=== PATIENT | male | born 1975 | race Asian ===

== ENCOUNTER → 2017-01-15 | Outpatient (CLI) | payer BC | LOC: MW.CHNEURO 13:02 | PROVIDERS: ATTEND Psychiatry & Neurology Neuromuscular Medicine | DX: I63.9 Cerebral infarction, unspecified (principal); Z53.9 Procedure and treatment not carried out, unspecified reason ==

== ENCOUNTER → 2017-01-16 | Outpatient (CLI) | payer BC ==
--- NOTE | 2017-01-16 11:14 | CT ---
EXAMINATION: Non contrast CT head. Coronal and sagittal reformats. HISTORY: Cerebral infarction Comparison: MRI and CT dated 11/14/2016 FINDINGS: No evidence of intra or extra axial hemorrhage, mass, midline shift, hydrocephalus or edema. No hypoattenuation changes in the major vascular territories to suggest acute infarct. No abnormal intracranial calcifications are detected. No evidence of substantial vascular calcifica tions. Paranasal sinuses and mastoid air cells are well aerated without substantial findings. Pituitary fossa appears unremarkable. The orbits and globes appear normal. Calvarium is intact. No evidence of skull fracture. IMPRESSION: 1. No acute intracranial findings. 2. Previously demonstrated right frontoparietal infarct is not visualized.
== END ==
LOC: MW.DI 10:37
PROVIDERS: ATTEND Psychiatry & Neurology Neuromuscular Medicine
DX: I63.9 Cerebral infarction, unspecified (principal)
CPT/HCPCS: 70450; 70450-26

== ENCOUNTER 2017-10-11 13:50 | Emergency (ER) | payer BC ==
[2017-10-11] MEDS ORDERED: Sodium Chloride 0.9% 10 ML Syringe FLUSH PRN (14:11)
[2017-10-11] MEDS ORDERED: Sodium Chloride 0.9% 2.5 ML Syringe FLUSH PRN (14:11)
[2017-10-11 14:50] LABS: CHLORIDE,CL 105 mmol/L (98-110); SODIUM,NA 138 mmol/L (136-146)
--- NOTE | 2017-10-11 14:53 | CR ---
EXAMINATION: Portable chest radiograph. HISTORY: Shortness of breath. FINDINGS: The trachea is midline. The cardiomediastinal silhouette is within normal limits. No pulmonary infilt rates, effusions or pneumothorax. Osseous structures appear unremarkable. IMPRESSION: No acute cardiopulmonary process.
[2017-10-11] MEDS ORDERED: Sodium Chloride 0.9% 1,000 ML IV ONE (15:01)
--- NOTE | 2017-10-11 15:57 | CT ---
EXAMINATION: Non contrast CT head. Coronal and sagittal reformats. HISTORY: Pain FINDINGS: No evidence of intra or extra axial hemorrhage, mass, midline shift, hydrocephalus or edema. No hypoattenuation changes in the major vascular territories to suggest acute infarct. No abnormal intracranial calcifications are detected. No evidence of substantial vascular calcificat ions. Paranasal sinuses and mastoid air cells are well aerated without substantial findings. Old left medi al inferior orbital wall fracture. Pituitary fossa appears unremarkable. Calvarium is intact. No evidence of skull fracture. IMPRESSION: No acute intracranial findings.
--- NOTE | 2017-10-11 16:05 | EDM.PDOC ---
ED HPI GENERAL MEDICAL PROBLEM - General Chief Complaint: General Stated Complaint: light head, sweats amd neck tention Time Seen by Provider: 10/11/17 13:59 Source of Information: Reports: Patient History Limitations: Reports: No Limitations - History of Present Illness INITIAL COMMENTS - FREE TEXT/NARRATIVE: History of present illness: []Patient had an episode earlier today where he felt "disconnected" no specific symptoms such as dizziness, headache, numbness tingling, chest pain, shortness of breath or visual changes. States he's had TIAs capacity feels same. Says that his symptoms have decreased. He felt similar symptoms 2 days ago when [place] and states that he talked himself down calling it a "anxiety attack" Review of systems: As per history of present illness and below otherwise all systems reviewed and negative. Past medical history: As per history of present illness and as reviewed below otherwise noncontributory. Surgical history: As per history of present illness and as reviewed below otherwise noncontributory. Social history: No reported history of drug or alcohol abuse. Family history: As per history of present illness and as reviewed below otherwise noncontributory. Physical exam: General: Well developed, well nourished in NAD HEENT: Atraumatic, normocephalic, pupils reactive, negative for conjunctival pallor or scleral icterus, mucous membranes moist, throat clear, neck supple, nontender, trachea midline. Lungs: Clear to auscultation, breath sounds equal bilaterally, chest nontender. Heart: S1S2, regular, negative for clicks, rubs, or JVD. Abdomen: Soft, nondistended, nontender. Negative for masses or hepatosplenomegaly. Negative for costovertebral tenderness. Pelvis: Stable nontender. Genitourinary: Deferred. Rectal: Deferred. Extremities: Atraumatic, negative for cords or calf pain. Neurovascular unremarkable. Neuro: Awake, alert, oriented. Cranial nerves II through XII unremarkable. Cerebellum unremarkable. Motor and sensory unremarkable throughout. Exam nonfocal. Diagnostics: [] Therapeutics: [] Impression: [] Plan: [] Definitive disposition and diagnosis as appropriate pending reevaluation and review of above. - Related Data Allergies Allergy/AdvReac Type Severity Reaction Status Date / Time No Known Allergies Allergy Verified 10/11/17 14:04 Home Meds: Home Meds Aspirin 81 mg PO DAILY 11/14/16 [History] Ergocalciferol (Vitamin D2) [Vitamin D] 0 units PO DAILY 11/14/16 [History] atorvaSTATin [Lipitor] 20 mg PO BEDTIME 10/11/17 [History] Past Medical History - Past Health History Medical/Surgical History: Denies Medical/Surgical History HEENT History: Reports: Impaired Vision Other HEENT History: wears glasses Cardiovascular History: Reports: Other (See Below) Other Cardiovascular History: PFO Neurological History: Reports: Other (See Below) Other Neuro History: hx of 2 stroke: in 2012 and 2016 Social & Family History - Family History Family Medical History: Noncontributory Cardiac: Reports: CAD Oncologic: Reports: Prostate - Tobacco Use Smoking Status *Q: Never Smoker Second Hand Smoke Exposure: No - Caffeine Use Caffeine Use: Reports: Coffee Caffeine Use Comment: 2 cups daily - Recreational Drug Use Recreational Drug Use: No ED ROS GENERAL - Review of Systems Review Of Systems: See Below (See history of present illness) ED EXAM, GENERAL - Physical Exam Exam: See Below (See history of present illness) Course - Vital Signs Last Recorded V/S: Last Vital Signs Temp 97.3 F 10/11/17 13:50 Pulse 58 L 10/11/17 13:50 Resp 20 10/11/17 13:50 BP 146/93 H 10/11/17 13:50 Pulse Ox 99 10/11/17 13:50 - Orders/Labs/Meds Orders: Active Orders 24 hr Category Date Time Status EKG Documentation Completion [RC] STAT Care 10/11/17 14:11 Active Sodium Chloride 0.9% [Saline Flush] Med 10/11/17 14:11 Active 10 ml FLUSH ASDIRECTED PRN Sodium Chloride 0.9% [Saline Flush] Med 10/11/17 14:11 Active 2.5 ml FLUSH ASDIRECTED PRN Saline Lock Insert [OM.PC] Stat Oth 10/11/17 14:11 Ordered Medication Orders Sodium Chloride (Saline Flush) 10 ml FLUSH ASDIRECTED PRN PRN Reason: Keep Vein Open Last Admin: 10/11/17 14:38 Dose: 10 ml Sodium Chloride (Saline Flush) 2.5 ml FLUSH ASDIRECTED PRN PRN Reason: Keep Vein Open Last Admin: 10/11/17 14:38 Dose: 2.5 ml Labs: Laboratory Tests 10/11/17 10/11/17 10/11/17 Range/Units 14:00 14:25 14:25 WBC 9.58 (4.0-11.0) K/uL RBC 5.16 (4.50-5.90) M/uL Hgb 15.9 (13.0-17.0) g/dL Hct 45.3 (38.0-50.0) % MCV 87.8 (80.0-98.0) fL MCH 30.8 (27.0-32.0) pg MCHC 35.1 (31.0-37.0) g/dL RDW Std Deviation 40.6 (28.0-62.0) fl RDW Coeff of Michele 13 (11.0-15.0) % Plt Count 193 (150-400) K/uL MPV 9.50 (7.40-12.00) fL Neut % (Auto) 72.4 (48.0-80.0) % Lymph % (Auto) 19.2 (16.0-40.0) % Hart % (Auto) 6.8 (0.0-15.0) % Eos % (Auto) 1.4 (0.0-7.0) % Baso % (Auto) 0.2 (0.0-1.5) % Neut # (Auto) 6.9 H (1.4-5.7) K/uL Lymph # (Auto) 1.8 (0.6-2.4) K/uL Hart # (Auto) 0.7 (0.0-0.8) K/uL Eos # (Auto) 0.1 (0.0-0.7) K/uL Baso # (Auto) 0.0 (0.0-0.1) K/uL Nucleated RBC % 0.0 /100WBC Nucleated RBCs # 0 K/uL Sodium 138 (136-146) mmol/L Potassium 4.0 (3.5-5.1) mmol/L Chloride 105 (98-110) mmol/L Carbon Dioxide 24 (21-31) mmol/L BUN 14 (6.0-23.0) mg/dL Creatinine 0.9 (0.6-1.5) mg/dL Est Cr Clr Drug Dosing 116.20 mL/min Estimated GFR (MDRD) > 60.0 ml/min Glucose 100 (60-110) mg/dL Calcium 9.5 (8.8-10.8) mg/dL Total Bilirubin 0.5 (0.1-1.5) mg/dL AST 23 (5-40) IU/L ALT 36 (8-54) IU/L Alkaline Phosphatase 107 (40-150) Troponin I < 0.10 (0.0-0.29) NG/ML Total Protein 7.6 (6.0-8.0) g/dL Albumin 4.5 (3.5-5.0) g/dL Globulin 3.1 (2.0-3.5) g/dL Albumin/Globulin Ratio 1.5 (1.3-2.8) Urine Color YELLOW Urine Appearance CLEAR Urine pH 5.5 (5.0-8.0) Ur Specific [place] <= 1.005 (1.001-1.035) Urine Protein NEGATIVE (NEGATIVE) mg/dL Urine Glucose (UA) NEGATIVE (NEGATIVE) mg/dL Urine Ketones NEGATIVE (NEGATIVE) mg/dL Urine Occult Blood TRACE-INTACT (NEGATIVE) Urine Nitrite NEGATIVE (NEGATIVE) Urine Bilirubin NEGATIVE (NEGATIVE) Urine Urobilinogen 0.2 (<2.0) EU/dL Ur Leukocyte Esterase NEGATIVE (NEGATIVE) Urine RBC 0-2 (0-2/HPF) Urine WBC 0-1 (0-5/HPF) Ur Epithelial Cells RARE (NONE-FEW) Urine Bacteria RARE (NEGATIVE) Meds: Medications Generic Name Dose Route Start Last Admin Trade Name Freq PRN Reason Stop Dose Admin Sodium Chloride 10 ml 10/11/17 14:11 10/11/17 14:38 Saline Flush FLUSH 10 ml ASDIRECTED PRN Administration Keep Vein Open Sodium Chloride 2.5 ml 10/11/17 14:11 10/11/17 14:38 Saline Flush FLUSH 2.5 ml ASDIRECTED PRN Administration Keep Vein Open Discontinued Medications Generic Name Dose Route Start Last Admin Trade Name Freq PRN Reason Stop Dose Admin Sodium Chloride 1,000 mls @ 999 mls/hr 10/11/17 15:01 10/11/17 15:18 Normal Saline IV 10/11/17 16:01 999 mls/hr .Bolus ONE Administration Departure - Departure Time of Disposition: 16:04 Disposition: Home, Self-Care 01 Condition: Good Clinical Impression: Dizziness - Discharge Information Instructions: Dizziness, [id number] Referrals: Tom Ibanez MD [Primary Care Provider] - Forms: ED Department Discharge Additional Instructions: The following information is given to patients seen in the emergency department who are being discharged to home. This information is to outline your options for follow-up care. We provide all patients seen in our emergency department with a follow-up referral. The need for follow-up, as well as the timing and circumstances, are variable depending upon the specifics of your emergency department visit. If you don't have a primary care physician on staff, we will provide you with a referral. We always advise you to contact your personal physician following an emergency department visit to inform them of the circumstance of the visit and for follow-up with them and/or the need for any referrals to a consulting specialist. The emergency department will also refer you to a specialist when appropriate. This referral assures that you have the opportunity for follow-up care with a specialist. All of these measure are taken in an effort to provide you with optimal care, which includes your follow-up. Under all circumstances we always encourage you to contact your private physician who remains a resource for coordinating your care. When calling for follow-up care, please make the office aware that this follow-up is from your recent emergency room visit. If for any reason you are refused follow-up, please contact the [facility] at and asked to speak to the emergency department charge nurse. Follow-up with PMD return if symptoms worsen [facility] [address] [place] [id number] - My Orders Last 24 Hours: My Active Orders 10/11/17 14:11 EKG Documentation Completion [RC] STAT Sodium Chloride 0.9% [Saline Flush] 10 ml FLUSH ASDIRECTED PRN Sodium Chloride 0.9% [Saline Flush] 2.5 ml FLUSH ASDIRECTED PRN Saline Lock Insert [OM.PC] Stat - Assessment/Plan Last 24 Hours: My Active Orders 10/11/17 14:11 EKG Documentation Completion [RC] STAT Sodium Chloride 0.9% [Saline Flush] 10 ml FLUSH ASDIRECTED PRN Sodium Chloride 0.9% [Saline Flush] 2.5 ml FLUSH ASDIRECTED PRN Saline Lock Insert [OM.PC] Stat
[2017-10-11 16:21] VITALS: BP 131/83
== END 2017-10-11 16:12 | disposition home or self-care (01) ==
LOC: MW.ED 13:50
DX: R42 Dizziness and giddiness (principal); Z79.82 Long term (current) use of aspirin
CPT/HCPCS: 36415; 70450; 71010; 80053; 81001; 84484; 85025; 93005; 96360; 99285; J7040; 99282

== ENCOUNTER 2022-10-25 10:54 | Day surgery (SDC) | payer BC, OTHER ==
[~2022-10-25 10:54] MED LIST: Acetaminophen 1,000 MG in Premix Bag 1 BAG IV SCH; Albuterol 0.083% 2.5 MG/3 ML Neb Soln NEB PRN; HYDROmorphone 1 MG/ML Syringe IVPUSH PRN; Lactated Ringers 1,000 ML IV SCH; Metoclopramide 10 MG/2 ML SDV IVPUSH PRN; Morphine 2 MG/ML SYRINGE IVPUSH PRN; Naloxone 0.4 MG/ML SDV IVPUSH PRN; Ondansetron 4 MG/2 ML SDV IVPUSH PRN; Pregabalin 75 MG Cap PO SCH; ceFAZolin 2 GM in Premix Bag 1 BAG IV SCH; fentaNYL 50 MCG/ML SDV IVPUSH PRN
[2022-10-25] MEDS ORDERED: Sugammadex Sodium 200 MG/2 ML VIAL ONE (11:12)
[2022-10-25] MEDS ORDERED: Ketorolac 30 MG/ML SDV ONE (11:12)
[2022-10-25] MEDS ORDERED: Lidocaine 2% 5 ML SDV ONE (11:12)
[2022-10-25] MEDS ORDERED: Rocuronium Bromide 50 MG/5 ML Syringe ONE (11:12)
[2022-10-25] MEDS ORDERED: Ondansetron 4 MG/2 ML SDV ONE (11:12)
[2022-10-25] MEDS ORDERED: Dexamethasone 4 MG/ML 5 ML MDV ONE (11:12)
[2022-10-25] MEDS ORDERED: fentaNYL 100 MCG/2 ML SDV ONE (11:13)
[2022-10-25] MEDS ORDERED: Midazolam 1 MG/ML 2 ML SDV ONE (11:13)
[2022-10-25] MEDS ORDERED: Propofol 200 MG/20 ML SDV ONE (11:13)
[2022-10-25] MEDS ORDERED: Bupivacaine 0.5% 10 ML SDV ONE (12:37)
[2022-10-25] MEDS ORDERED: Ropivacaine 0.5% 5 MG/ML 30 ML SDV ONE (13:05)
[2022-10-25] MEDS ORDERED: ceFAZolin 2 GM Vial ONE (13:13)
[2022-10-25] MEDS ORDERED: Water For Injection, Sterile 20 ML ONE (13:13)
[2022-10-25] MEDS ORDERED: ceFAZolin 1 GM Vial ONE (13:25)
[2022-10-25] MEDS ORDERED: ePHEDrine 50 MG/ML SDV ONE (13:30)
[2022-10-25 16:13] VITALS: BP 108/68; PULSE 71
== END 2022-10-25 16:00 | disposition home or self-care (01) ==
LOC: MW.SDS 10:54
PROVIDERS: ATTEND Surgery
DX: K42.9 Umbilical hernia without obstruction or gangrene (principal); F41.9 Anxiety disorder, unspecified; E78.00 Pure hypercholesterolemia, unspecified; Z79.899 Other long term (current) drug therapy; Z79.82 Long term (current) use of aspirin
CPT/HCPCS: 49585; A9270; J0131; J0690; J1100; J1885; J2250; J2405; J2704; J2795; J3010; J3490; J7120

== ENCOUNTER 2025-04-21 11:05 | Emergency (ER) | payer OTHER ==
[2025-04-21 11:49] VITALS: BP 152/95; PULSE 67
[2025-04-21] MEDS: Ketorolac 30 MG/ML SDV IM ONE (12:37)
[2025-04-21] MEDS: Orphenadrine 60 MG/2 ML Inj IM ONE (12:39)
[2025-04-21] MEDS: Lidocaine 4% Patch TOP STA (12:40)
== END 2025-04-21 12:45 | disposition home or self-care (01) ==
LOC: MW.ED 11:05
DX: M54.12 Radiculopathy, cervical region (principal); Z75.8 Other problems related to medical facilities and other health care; E66.9 Obesity, unspecified; Z68.38 Body mass index [BMI] 38.0-38.9, adult
CPT/HCPCS: 96372; 99283; A9270; J1100; J1885; J2360